=== PATIENT | female | born 1960 | race Caucasian/White ===

== ENCOUNTER 2017-08-10 13:38 | Emergency (ER) | payer SELFPAY ==
[~2017-08-10] VITALS: Ht 175.3 cm; Wt 75.0 kg
[2017-08-10 13:39] VITALS: BP 160/91; PULSE 90; RESP 14; TEMP 98.6; O2SAT 96
[2017-08-10] MEDS ORDERED: AZIT250T3 PO (15:29)
--- NOTE | 2017-08-10 15:29 | PD ---
HPI Chief Complaint: Cold / Flu Symptoms Time Seen by Provider: 14:53 Travel History International Travel<30 days: No Contact w/Intl Traveler<30days: No Traveled to known affect area: No History of Present Illness HPI 56-year-old female here for evaluation of productive cough and colored sputum 3 days. Patient denies fever or chills. She denies chest pain or shortness of breath. Symptoms severity moderate. No alleviating factors. Patient has not tried any OTC medications. PFSH Past Medical History Medical History: Denies Significant Hx ?: Unknown Social History Alcohol Use: Yes Tobacco Use: Yes Substance Use: No Allergies-Medications (Allergen,Severity, Reaction): Coded Allergies: No Known Allergies (Unverified , 08/10/17) Reported Meds & Prescriptions Reported Meds & Active Scripts Active Azithromycin 250 Mg Tab 250 Mg PO DIRECTED Take 2 tabs (500 mg) on day 1 then 1 tab daily x 4 days. Review of Systems Except as stated in HPI: all other systems reviewed are Neg Physical Exam Narrative GENERAL: Well-nourished, well-developed patient. SKIN: Focused skin assessment warm/dry. HEAD: Normocephalic. EYES: No scleral icterus. No injection or drainage. NECK: Supple, trachea midline. No JVD or lymphadenopathy. CARDIOVASCULAR: Regular rate and rhythm without murmurs, gallops, or rubs. RESPIRATORY: Breath sounds equal bilaterally. No accessory muscle use. GASTROINTESTINAL: Abdomen soft, non-tender, nondistended. MUSCULOSKELETAL: No cyanosis, or edema. BACK: Nontender without obvious deformity. No CVA tenderness. Data Data Last Documented VS Vital Signs Date Time Temp Pulse Resp B/P (MAP) Pulse Ox O2 Delivery O2 Flow Rate FiO2 08/10/17 13:39 98.6 90 14 160/91 (114) 96 Orders Orders Ed Discharge Order (08/10/17 15:29) [facility] Medical Decision Making Medical Screen Exam Complete: Yes Emergency Medical Condition: Yes Differential Diagnosis Bronchitis, pneumonia, viral URI Narrative Course 56-year-old female here for evaluation of productive cough with reported colored sputum 3 days. On exam patient has a harsh bronchial sounding cough. Her breath sounds are clear bilaterally. Her vital signs are stable. She'll be treated on an outpatient basis for bronchitis. She is requesting medication that is free at [facility]. Diagnosis Primary Impression: Bronchitis Referrals: [facility] Additional Instructions: take the medication as prescribed stay well hydrated and rest follow up with the [facility] Scripts Sulfamethoxazole-Trimethoprim (Bactrim DS) 800-160 Mg Tab 1 TAB PO BID for Infection, #14 TAB 0 Refills Prov: Carley Villegas 08/10/17 Disposition: 01 DISCHARGE HOME Condition: Stable Carley Villegas Aug 10, 2017 15:29
--- NOTE | 2017-08-10 15:29 | PD ---
HPI Chief Complaint: Cold / Flu Symptoms Time Seen by Provider: 14:53 Travel History International Travel<30 days: No Contact w/Intl Traveler<30days: No Traveled to known affect area: No History of Present Illness HPI 56-year-old female here for evaluation of productive cough and colored sputum 3 days. Patient denies fever or chills. She denies chest pain or shortness of breath. Symptoms severity moderate. No alleviating factors. Patient has not tried any OTC medications. PFSH Past Medical History Medical History: Denies Significant Hx ?: Unknown Social History Alcohol Use: Yes Tobacco Use: Yes Substance Use: No Allergies-Medications (Allergen,Severity, Reaction): Coded Allergies: No Known Allergies (Unverified , 08/10/17) Reported Meds & Prescriptions Reported Meds & Active Scripts Active Azithromycin 250 Mg Tab 250 Mg PO DIRECTED Take 2 tabs (500 mg) on day 1 then 1 tab daily x 4 days. Review of Systems Except as stated in HPI: all other systems reviewed are Neg Physical Exam Narrative GENERAL: Well-nourished, well-developed patient. SKIN: Focused skin assessment warm/dry. HEAD: Normocephalic. EYES: No scleral icterus. No injection or drainage. NECK: Supple, trachea midline. No JVD or lymphadenopathy. CARDIOVASCULAR: Regular rate and rhythm without murmurs, gallops, or rubs. RESPIRATORY: Breath sounds equal bilaterally. No accessory muscle use. GASTROINTESTINAL: Abdomen soft, non-tender, nondistended. MUSCULOSKELETAL: No cyanosis, or edema. BACK: Nontender without obvious deformity. No CVA tenderness. Data Data Last Documented VS Vital Signs Date Time Temp Pulse Resp B/P (MAP) Pulse Ox O2 Delivery O2 Flow Rate FiO2 08/10/17 13:39 98.6 90 14 160/91 (114) 96 Orders Orders Ed Discharge Order (08/10/17 15:29) [facility] Medical Decision Making Medical Screen Exam Complete: Yes Emergency Medical Condition: Yes Differential Diagnosis Bronchitis, pneumonia, viral URI Narrative Course 56-year-old female here for evaluation of productive cough with reported colored sputum 3 days. On exam patient has a harsh bronchial sounding cough. Her breath sounds are clear bilaterally. Her vital signs are stable. She'll be treated on an outpatient basis for bronchitis. She is requesting medication that is free at [facility] Diagnosis Primary Impression: Bronchitis Referrals: [facility] Additional Instructions: take the medication as prescribed stay well hydrated and rest follow up with the [facility] Scripts Sulfamethoxazole-Trimethoprim (Bactrim DS) 800-160 Mg Tab 1 TAB PO BID for Infection, #14 TAB 0 Refills Prov: Carley Villegas 08/10/17 Disposition: 01 DISCHARGE HOME Condition: Stable Carley Villegas Aug 10, 2017 15:29
--- NOTE | 2017-08-10 15:29 | PD ---
HPI Chief Complaint: Cold / Flu Symptoms Time Seen by Provider: 14:53 Travel History International Travel<30 days: No Contact w/Intl Traveler<30days: No Traveled to known affect area: No History of Present Illness HPI 56-year-old female here for evaluation of productive cough and colored sputum 3 days. Patient denies fever or chills. She denies chest pain or shortness of breath. Symptoms severity moderate. No alleviating factors. Patient has not tried any OTC medications. PFSH Past Medical History Medical History: Denies Significant Hx ?: Unknown Social History Alcohol Use: Yes Tobacco Use: Yes Substance Use: No Allergies-Medications (Allergen,Severity, Reaction): Coded Allergies: No Known Allergies (Unverified , 08/10/17) Reported Meds & Prescriptions Reported Meds & Active Scripts Active Azithromycin 250 Mg Tab 250 Mg PO DIRECTED Take 2 tabs (500 mg) on day 1 then 1 tab daily x 4 days. Review of Systems Except as stated in HPI: all other systems reviewed are Neg Physical Exam Narrative GENERAL: Well-nourished, well-developed patient. SKIN: Focused skin assessment warm/dry. HEAD: Normocephalic. EYES: No scleral icterus. No injection or drainage. NECK: Supple, trachea midline. No JVD or lymphadenopathy. CARDIOVASCULAR: Regular rate and rhythm without murmurs, gallops, or rubs. RESPIRATORY: Breath sounds equal bilaterally. No accessory muscle use. GASTROINTESTINAL: Abdomen soft, non-tender, nondistended. MUSCULOSKELETAL: No cyanosis, or edema. BACK: Nontender without obvious deformity. No CVA tenderness. Data Data Last Documented VS Vital Signs Date Time Temp Pulse Resp B/P (MAP) Pulse Ox O2 Delivery O2 Flow Rate FiO2 08/10/17 13:39 98.6 90 14 160/91 (114) 96 Orders Orders Ed Discharge Order (08/10/17 15:29) [facility] Medical Decision Making Medical Screen Exam Complete: Yes Emergency Medical Condition: Yes Differential Diagnosis Bronchitis, pneumonia, viral URI Narrative Course 56-year-old female here for evaluation of productive cough with reported colored sputum 3 days. On exam patient has a harsh bronchial sounding cough. Her breath sounds are clear bilaterally. Her vital signs are stable. She'll be treated on an outpatient basis for bronchitis. She is requesting medication that is free at [facility]. Diagnosis Primary Impression: Bronchitis Referrals: [facility] Additional Instructions: take the medication as prescribed stay well hydrated and rest follow up with the [facility] Scripts Sulfamethoxazole-Trimethoprim (Bactrim DS) 800-160 Mg Tab 1 TAB PO BID for Infection, #14 TAB 0 Refills Prov: Carley Villegas 08/10/17 Disposition: 01 DISCHARGE HOME Condition: Stable Carley Villegas Aug 10, 2017 15:29
[2017-08-10] MEDS ORDERED: BACT800T5 PO (15:33)
== END 2017-08-10 16:21 | disposition home or self-care (01) ==
LOC: NEPD 13:38
DX: J40 Bronchitis, not specified as acute or chronic (principal)
CPT/HCPCS: 99283